=== PATIENT | female | born 1980 ===

== ENCOUNTER 2022-12-17 22:40 | Emergency (ER) | payer SELFPAY ==
--- NOTE | 2022-12-17 23:57 | ER ---
Nurse's Notes [facility] Name: Haydee Escalona Age: 42 yrs Sex: Female : 1980 Arrival Date: 12/17/2022 Time: 22:40 Bed 20 Private MD: Diagnosis: Pain in right leg Presentation: 12/17 22:49 Chief complaint: Patient states: right leg pain and swelling X2 days. Coronavirus lg3 screen: Client denies travel out of the [place] in the last 14 days. At this time, the client does not indicate any symptoms associated with coronavirus-19. Ebola Screen: No symptoms or risks identified at this time. Initial Sepsis Screen: Does the patient meet any 2 criteria? No. Patient's initial sepsis screen is negative. Does the patient have a suspected source of infection? No. Patient's initial sepsis screen is negative. Risk Assessment: Do you want to hurt yourself or someone else? Patient reports no desire to harm self or others. Onset of symptoms was December 15, 2022. 22:49 Method Of Arrival: Ambulatory lg3 22:49 Acuity: JOSSY 3 lg3 Triage Assessment: 22:51 General: Appears in no apparent distress. comfortable, Behavior is calm, cooperative. lg3 Pain: Complains of pain in right leg. EENT: No deficits noted. No signs and/or symptoms were reported regarding the EENT system. Neuro: No deficits noted. Dozier Agitation-Sedation Scale (RASS): 0 - Alert and Calm Level of Consciousness is awake, alert, obeys commands, Oriented to person, place, time, situation. Cardiovascular: No deficits noted. Denies chest pain, shortness of breath, Capillary refill < 3 seconds Clubbing of nail beds is absent JVD is absent Patient's skin is warm and dry. Respiratory: No deficits noted. Airway is patent Respiratory effort is even, unlabored, Respiratory pattern is regular, symmetrical. GI: No deficits noted. No signs and/or symptoms were reported involving the gastrointestinal system. : No deficits noted. No signs and/or symptoms were reported regarding the genitourinary system. Derm: No deficits noted. No signs and/or symptoms reported regarding the dermatologic system. Skin is intact, is healthy with good turgor, Skin is dry, Skin is normal, Skin temperature is warm. Musculoskeletal: Circulation, motion, and sensation intact. Range of motion: intact in all extremities, Swelling present in right leg. WRAPPER OFF: 22:51 LMP 12/02/2022 lg3 Historical: - Allergies: 22:51 No Known Allergies; lg3 - Home Meds: 22:51 None [Active]; lg3 - PMHx: 22:51 Asthma; lg3 - PSHx: 22:51 gastric sleeve; Tonsillectomy; lg3 - Immunization history:: Adult Immunizations up to date, Client reports having NOT received the Covid vaccine. - Social history:: Smoking status: Patient denies any tobacco usage or history of. Patient uses alcohol, only on a social basis. Screenin/31 00:00 [facility] ED Fall Risk Assessment (Adult) Score/Fall Risk Level 0 - 2 = Low Risk. Abuse iw screen: Denies threats or abuse. Denies injuries from another. Nutritional screening: No deficits noted. Tuberculosis screening: No symptoms or risk factors identified. Assessment: 12/17 23:45 General: Appears in no apparent distress. Behavior is calm, cooperative. Pain: iw Complains of pain in right leg. Neuro: Level of Consciousness is awake, alert, obeys commands, Oriented to person, place, time, situation, Moves all extremities. Full function. Cardiovascular: Patient's skin is warm and dry. Respiratory: Respiratory effort is even, unlabored, Respiratory pattern is regular, symmetrical. GI: No signs and/or symptoms were reported involving the gastrointestinal system. Derm: Skin is intact, is healthy with good turgor. Musculoskeletal: Range of motion: limited in all extremities, Reports pain in right leg. Vital Signs: 22:49 BP 136 / 85; Pulse 72; Resp 16 S; Temp 98.7(O); Pulse Ox 100% on R/A; Weight 114.76 kg lg3 (R); Height 5 ft. 3 in. (R); 22:49 Body Mass Index 44.82 (114.76 kg, 160.02 cm) lg3 ED Course: 22:41 Patient arrived in ED. ag3 22:47 Marisela Roque F[facility]-C [facility] kb 22:47 Parth Ayers MD is Attending Physician. kb 22:51 Triage completed. lg3 22:51 Arm band placed on right wrist. lg3 22:55 Eliazar, Miranda, RN is Primary Nurse. iw 23:45 Patient has correct armband on for positive identification. Provided Education on: . iw 23:58 US Extremity Venous Unilateral Ltd In Process Unspecified. EDMS 12/18 00:00 No provider procedures requiring assistance completed. Patient did not have IV access iw during this emergency room visit. Administered Medications: No medications were administered Medication: 12/17 23:45 VIS not applicable for this client. iw Outcome: 23:56 Discharge ordered by MD. oneal 12/18 00:05 Discharged to home ambulatory. iw Condition: good Discharge instructions given to patient, Instructed on discharge instructions, follow up and referral plans. Demonstrated understanding of instructions, follow-up care, medications, Prescriptions given X 2. 00:06 Patient left the ED. iw Signatures: Dispatcher [employer] EDVT Marisela Roque, BARREL PLATER-C BARREL PLATER-Ckb Miranda Perea, RN RN iw Carolee Rubi Lacie, RN RN lg3
--- NOTE | 2022-12-17 23:57 | EDPHYS ---
Physician Documentation [facility] Name: Haydee Escalona Age: 42 yrs Sex: Female : 1980 Arrival Date: 12/17/2022 Time: 22:40 Bed 20 Private MD: ED Physician Parth Ayers HPI: 12/17 23:14 This 42 yrs old Female presents to ER via Ambulatory with complaints of Leg Pain. kb 23:14 The patient presents with pain, that is acute. The complaints affect the right leg. kb Context: The problem was sustained at home, resulted from an unknown cause, the patient can fully bear weight, the patient is able to ambulate. Onset: The symptoms/episode began/occurred yesterday. Modifying factors: The symptoms are alleviated by nothing. the symptoms are aggravated by nothing. Associated signs and symptoms: Pertinent positives: calf tenderness, swelling, Pertinent negatives fever, nausea, numbness, rash, tingling, vomiting, warmth, weakness. Treatment prior to arrival includes: no previous treatment. Severity of symptoms: At their worst the symptoms were moderate, in the emergency department the symptoms are unchanged. The patient has not experienced similar symptoms in the past. The patient has not recently seen a physician. CERTIFIED CAREGIVER: 22:51 LMP 12/02/2022 lg3 Historical: - Allergies: 22:51 No Known Allergies; lg3 - Home Meds: 22:51 None [Active]; lg3 - PMHx: 22:51 Asthma; lg3 - PSHx: 22:51 gastric sleeve; Tonsillectomy; lg3 - Immunization history:: Adult Immunizations up to date, Client reports having NOT received the Covid vaccine. - Social history:: Smoking status: Patient denies any tobacco usage or history of. Patient uses alcohol, only on a social basis. ROS: 23:13 Constitutional: Negative for fever, chills, and weight loss. kb 23:13 MS/extremity: Positive for pain, swelling, of the right leg. 23:13 All other systems are negative. Exam: 23:13 Constitutional: This is a well developed, well nourished patient who is awake, alert, kb and in no acute distress. Head/Face: Normocephalic, atraumatic. ENT: Moist Mucous membranes Cardiovascular: Regular rate and rhythm with a normal S1 and S2. No gallops, murmurs, or rubs. No pulse deficits. Respiratory: Respirations even and unlabored. No increased work of breathing. Talking in full sentences Abdomen/GI: Soft, non-tender. No distention Skin: Warm, dry with normal turgor. Normal color. Neuro: Awake and alert, GCS 15, oriented to person, place, time, and situation. Moves all extremities. Normal gait. 23:13 Musculoskeletal/extremity: Extremities: grossly normal except: noted in the right leg: pain, swelling, tenderness, ROM: intact in all extremities, Circulation is intact in all extremities. Sensation intact. Weight bearing: able to fully bear weight, DVT Exam: pain, swelling, tenderness. Vital Signs: 22:49 BP 136 / 85; Pulse 72; Resp 16 S; Temp 98.7(O); Pulse Ox 100% on R/A; Weight 114.76 kg lg3 (R); Height 5 ft. 3 in. (R); 22:49 Body Mass Index 44.82 (114.76 kg, 160.02 cm) lg3 MDM: 22:47 Patient medically screened. kb 23:15 Differential diagnosis: tendonitis, dvt, strain. Data reviewed: vital signs, nurses kb notes. 23:46 Test considered but Not performed: X-ray: X-ray considered but patient did not have any kb injury or trauma.. Counseling: I had a detailed discussion with the patient and/or guardian regarding the historical points, exam findings, and any diagnostic results supporting the discharge/admit diagnosis, radiology results, the need for outpatient follow up, a family practitioner, to return to the emergency department if symptoms worsen or persist or if there are any questions or concerns that arise at home. 12/17 22:50 Order name: US Extremity Venous Unilateral Ltd kb Administered Medications: No medications were administered Disposition: 12/18 01:40 Co-signature as Attending Physician, Parth Ayers MD I agree with the assessment sp4 and plan of care. I reviewed the patient's care provided by the Advanced Practice Provider and agree with the diagnosis and treatment plan. Disposition Summary: 12/17/22 23:56 Discharge Ordered Location: Home kb Condition: Stable kb Diagnosis - Pain in right leg kb Followup: kb - With: Emergency Department - When: As needed - Reason: Worsening of condition Followup: kb - With: Private Physician - When: 2 - 3 days - Reason: Recheck today's complaints, Continuance of care, Re-evaluation by your physician Discharge Instructions: - Discharge Summary Sheet kb - Musculoskeletal Pain kb Forms: - Medication Reconciliation Form kb - Thank You Letter kb - Antibiotic Education kb - Prescription Opioid Use kb - Patient Portal Instructions kb - Leadership Thank You Letter kb Prescriptions: - Ibuprofen 800 mg Oral Tablet - take 1 tablet by ORAL route every 8 hours As needed take with food; 30 tablet; kb Refills: 0, Product Selection Permitted - orphenadrine citrate 100 mg Oral Tablet Sustained Release - take 1 tablet by ORAL route 2 times per day As needed; 20 tablet; Refills: 0, kb Product Selection Permitted Signatures: Dispatcher [employer] EDMarisela Bowser, Iris Sotelo, RN RN lg3 Parth Ayers MD MD sp4
[2022-12-18 00:26] VITALS: BP 136/85; TEMP 98.7; O2SAT 100
--- NOTE | 2022-12-18 16:57 | RAD REPORT ---
EXAM DESCRIPTION: US - Extremity Venous Uni Ltd - 12/17/2022 11:56 pm CLINICAL HISTORY: PAIN Extremity Venous Uni Ltd TECHNIQUE: Real-time Duplex ultrasound of the right lower extremity veins with 2-D mcmahon scale, color Doppler flow, and spectral waveform analysis. COMPARISON: None available for comparison. FINDINGS: Right deep veins: The common femoral, femoral, popliteal and visualized calf veins are pat ent without thrombus. Normal compressibility, augmentation response, and Doppler waveforms. Right superficial veins: Visualized saphenofemoral junction is patent without thrombus. IMPRESSION: No evidence of deep venous thrombosis in the right lower extremity. Electronically signed by: Frandy Fernandez MD 12/18/2022 12:07 AM CDT Due to temporary technical issues with the PACS/Fluency reporting system, reports are being signed by the in house radiologists without review as a courtesy to insure prompt reporting. The interpreting radiologist is fully responsible for the content of the report.
== END 2022-12-18 00:06 | disposition home or self-care (01) ==
LOC: ER 22:40
DX: M79.604 Pain in right leg (principal)
CPT/HCPCS: 93971; 99283